=== PATIENT | female | born 1970 | race African-American/Black ===

== ENCOUNTER 2017-01-03 12:41 | Inpatient (IN) | payer OTHER ==
[2017-01-03 14:07] VITALS: BMI 21.9
--- NOTE | 2017-01-03 15:52 | HP ---
CIWA Score - CIWA Score Nausea/Vomitin Muscle Tremors: 2 Anxiety: 3 Agitation: 3 Paroxysmal Sweats: 3 Orientation: 0-Oriented Tacttile Disturbances: 2-Mild Itch/Numbness/Burn Auditory Disturbances: 0-None Visual Disturbances: 0-None Headache: 0-None Present CIWA-Ar Total Score: 15 Admission ROS BHS - HPI Chief Complaint: i need help to stop drinking Allergies/Adverse Reactions: Allergies Allergy/AdvReac Type Severity Reaction Status Date / Time No Known Allergies Allergy Verified 01/03/17 15:36 History of Present Illness: 46 y/o f pt aox3 in nad ambulating Exam Limitations: No Limitations - Ebola screening Have you traveled outside of the country in the last 21 days: No Have you had contact with anyone from an Ebola affected area: No Have you been sick,other than usual withdrawal symptoms: No Do you have a fever: No - Review of Systems Constitutional: Malaise, Unintentional Wgt. Loss EENT: reports: No Symptoms Reported Respiratory: reports: No Symptoms reported Cardiac: reports: No Symptoms Reported GI: reports: Nausea, Indigestion : reports: Frequency Musculoskeletal: reports: Back Pain Integumentary: reports: No Symptoms Reported Neuro: reports: No Symptoms reported Endocrine: reports: No Symptoms Reported Hematology: reports: No Symptoms Reported Psychiatric: reports: Anxious, Depressed Other Systems: Reviewed and Negative Patient History - Patient Medical History Hx Anemia: No Hx Asthma: No Hx Chronic Obstructive Pulmonary Disease (COPD): No Hx Cancer: No Hx Cardiac Disorders: No Hx Hypertension: No Hx Hypercholesterolemia: No Hx Pacemaker: No HX Cerebrovascular Accident: No Hx Seizures: No Hx Dementia: No Hx Diabetes: No Hx Gastrointestinal Disorders: Yes (Pt has GERD.) Hx Liver Disease: No Hx Genitourinary Disorders: No Hx Sexually Transmitted Disorders: Yes (Pt was tx for gonnorhea.) Hx Renal Disease (ESRD): No Hx Thyroid Disease: No Hx Human Immunodeficiency Virus (HIV): No (negative 2012) Hx Hepatitis C: No Hx Depression: Yes Hx Suicide Attempt: No Hx Bipolar Disorder: No Hx Schizophrenia: No - Patient Surgical History Past Surgical History: Yes Other Surgical History: L inguinal hernia repair tubal ligation. - PPD History Previous Implant?: Yes Documented Results: Negative w/o proof Implanted On Prior R Admission?: No PPD to be Administered?: Yes - Reproductive History Patient is a Female of Child Bearing Age (11 -55 yrs old): Yes Last Menstrual Period: 01/02/17 Patient : No - Smoking Cessation Smoking history: Current every day smoker Have you smoked in the past 12 months: Yes Aproximately how many cigarettes per day: 10 Cigars Per Day: 0 Hx Chewing Tobacco Use: No Initiated information on smoking cessation: Yes 'Breaking Loose' booklet given: 01/03/17 - Substance & Tx. History Hx Alcohol Use: Yes Hx Substance Use: Yes (mdma ) Substance Use Type: Alcohol Hx Substance Use Treatment: Yes - Substances Abused Alcohol Route: Oral Frequency: Daily Amount used: 2 40 OZ MALT LIQUOR AND UP Age of first use: 13 Date of Last Use: 01/03/17 Family Disease History - Family Disease History Family Disease History: Diabetes: Father (liver), Heart Disease: Father, CA: Father, Mother (breast age 57) Admission Physical Exam [facility] - Vital Signs Vital Signs: Vital Signs - 24 hr 01/03/17 14:05 Temperature 97.7 F Pulse Rate 93 H Respiratory 18 Rate Blood Pressure 119/86 46 y/o f pt aox3 in nad ambulating w/o tremor, + bruxism - Physical General Appearance: Yes: Thin, Anxious HEENTM: Yes: EOMI, Normal ENT Inspection, Normocephalic, Normal Voice, DARRON Respiratory: Yes: Chest Non-Tender, Lungs Clear, Normal Breath Sounds, No Respiratory Distress Neck: Yes: Supple, Trachea in good position Breast: Yes: Breast Exam Deferred Cardiology: Yes: Regular Rhythm, Regular Rate Abdominal: Yes: Non Tender, Flat, Soft, Increased Bowel Sounds Genitourinary: Yes: Frequency Back: Yes: Decreased Range of Motion Musculoskeletal: Yes: Back pain Extremities: Yes: Within Normal Limits Neurological: Yes: grinding room inspector II-XII NML intact, Fully Oriented Integumentary: Yes: Moist Lymphatic: Yes: Within Normal Limits - Diagnostic (1) Uncomplicated alcohol dependence Current Visit: Yes Status: Chronic (2) Chronic GERD Current Visit: Yes Status: Chronic (3) Nicotine dependence Current Visit: Yes Status: Chronic Qualifiers: Nicotine product type: cigarettes Substance use status: uncomplicated Qualified Code(s): F17.210 - Nicotine dependence, cigarettes, uncomplicated Cleared for Admission [facility] - Detox or Rehab [facility] Level of Care: Medically Managed Detox Regimen/Protocol: Librium BHS Breath Alcohol Content Breath Alcohol Content: 0.175 Urine Pregancy Test - Result Urine Test Results: Negative- NO Line Present Urine Drug Screen - Results Drug Screen Negative: No Urine Drug Screen Results: MDMA-Ecstasy
[2017-01-03] MEDS ORDERED: P-EPHED 60MG/TRIPROLIDI 2.5MG TABLET PO PRN (16:04)
[2017-01-03] MEDS ORDERED: MAGNESIUM HYDROX 2400MG/30ML ORAL SUSPENSION 30 ML CUP PO PRN (16:04)
[2017-01-03] MEDS ORDERED: ACETAMINOPHEN 325 MG TABLET (FP) PO PRN (16:04)
[2017-01-03] MEDS ORDERED: MAG HYDROX/AL HYDROX/SIMETH 30 ML UNIT-DOSE CUP PO PRN (16:04)
[2017-01-03] MEDS ORDERED: guaiFENesin/D-METHORPHAN HB 10 ML UNIT-DOSE CUPS PO PRN (16:04)
[2017-01-03] MEDS ORDERED: NICOTINE POLACRILEX 4 MG GUM BC PRN (16:04)
[2017-01-03] MEDS ORDERED: chlordiazePOXIDE HCL 25 MG CAPSULE PO PRN (16:04)
[2017-01-03] MEDS ORDERED: MENTHOL/PHENOL 1 EACH UD MM PRN (16:04)
[2017-01-03] MEDS ORDERED: LOPERAMIDE HCL 2 MG CAPSULE PO PRN (16:04)
[2017-01-03] MEDS ORDERED: hydrOXYzine PAMOATE 25 MG CAPSULE (FP) PO PRN (16:04)
[2017-01-03] MEDS ORDERED: MAGNESIUM CITRATE 300 ML BOTTLE PO PRN (16:04)
[2017-01-03] MEDS: chlordiazePOXIDE HCL 25 MG CAPSULE PO SCH ×2 (17:40→22:16)
[2017-01-03] MEDS: THIAMINE HCL 100 MG TABLET (FP) PO SCH (22:16)
[2017-01-03 23:00] LABS: URINE APPEARANCE CLEAR; URINE BILIRUBIN NEGATIVE (NEGATIVE); URINE COLOR STRAW; URINE GLUCOSE (UA) NEGATIVE (NEGATIVE); URINE KETONE NEGATIVE (NEGATIVE); URINE LEUK ESTERASE NEGATIVE (NEGATIVE); URINE NITRITE NEGATIVE (NEGATIVE); URINE PROTEIN NEGATIVE (NEGATIVE); URINE UROBILINOGEN NEGATIVE E.U./dl (0.2-1.0)
[2017-01-03 23:01] LABS: URINE BLOOD 3+ (NEGATIVE)
[2017-01-03 23:05] LABS: URINE MUCUS RARE; URINE RBC <1 /hpf (0-3); URINE WBC <1 /hpf (3-5)
[2017-01-04] MEDS: chlordiazePOXIDE HCL 25 MG CAPSULE PO SCH ×4 (05:50→22:11)
--- NOTE | 2017-01-04 09:55 | CONSULT ---
[facility] Psychiatric Consult - Data Date of interview: 01/04/17 Admission source: [facility] Identifying data: This is 46 years old female with no psychiatric hospitalization history intoxiocated with Alcohol and Nicotine Substance Abuse History: - Smoking Cessation. Smoking history: Current every day smoker. Have you smoked in the past 12 months: Yes. Aproximately how many cigarettes per day: 10. Cigars Per Day: 0. Hx Chewing Tobacco Use: No. Initiated information on smoking cessation: Yes. 'Breaking Loose' booklet given : 01/03/17. - Substance & Tx. History. Hx Alcohol Use: Yes. Hx Substance Use : Yes (mdma ). Substance Use Type: Alcohol. Hx Substance Use Treatment: Yes. - Substances Abused. Alcohol. Route: Oral. Frequency: Daily. Amount used : 2 40 OZ MALT LIQUOR AND UP. Age of first use: 13. Date of Last Use: 01/03/17 Medical History: GERD Psychiatric History: Patient reprots no past psychiatric history Physical/Sexual Abuse/Trauma History: Denies Additional Comment: Observation. Deto Unit Care Protocol Mental Status Exam - Mental Status Exam Alert and Oriented to: Person Cognitive Function: Fair Patient Appearance: Well Groomed Mood: Apprehensive Affect: Appropriate Patient Behavior: Cooperative Speech Pattern: Appropriate Voice Loudness: Normal Thought Process: Circumstantial, Goal Oriented Thought Disorder: Being Controlled Hallucinations: Denies Suicidal Ideation: Denies Homicidal Ideation: Denies Insight/Judgement: Fair Sleep: Difficulty falling asleep Appetite: Fair Muscle strength/Tone: Normal Gait/Station: Normal Additional Comments: Observation. Deto Unit Care Protocol Psychiatric Findings - Problem List ([place] 1, 2,3) (1) Nicotine dependence Current Visit: Yes Status: Chronic Qualifiers: Nicotine product type: cigarettes Substance use status: uncomplicated Qualified Code(s): F17.210 - Nicotine dependence, cigarettes, uncomplicated (2) Uncomplicated alcohol dependence Current Visit: Yes Status: Chronic (3) Alcohol dependence Current Visit: Yes Status: Acute (4) Drug-induced mood disorder Current Visit: Yes Status: Suspected - Initial Treatment Plan Initial Treatment Plan: Observation. Deto Unit Care Protocol
[2017-01-04] MEDS: PRENATAL VITAMINS W/ FOLIC ACID TABLET (FP) PO SCH (10:00)
[2017-01-04] MEDS: NICOTINE 21 MG/24 HOURS TOPICAL PATCH TD SCH (10:01)
[2017-01-04 10:19] LABS: MCH 33.2 pg (25.7-33.7); MCHC 33.2 g/dl (32.0-36.0); MEAN CELL VOLUME 99.8 fl (80-96); MEAN PLT VOLUME 8.5 fl (7.5-11.1); PLATELET COUNT 227 K/MM3 (134-434); RDW 12.6 % (11.6-15.6); WHITE BLOOD COUNT 5.7 K/mm3 (4.0-10.0)
[2017-01-04 10:39] LABS: ALK PHOS 85 U/L (45-117); ANION GAP 13 (8-16); BILIRUBIN,TOTAL 0.3 mg/dL (0.2-1.0); CALCIUM 8.8 mg/dL (8.5-10.1); CO2 24 mmol/L (21-32); CREATININE 0.7 mg/dL (0.55-1.02); GLUCOSE,RANDOM 67 mg/dL (74-106); SGOT/AST 113 U/L (15-37); SGPT/ALT 58 U/L (12-78); TOT PROT 7.5 g/dl (6.4-8.2)
--- NOTE | 2017-01-04 11:04 | PN ---
S CIWA - CIWA Score Nausea/Vomitin-No Nausea/No Vomiting Muscle Tremors: 3 Anxiety: 3 Agitation: 3 Paroxysmal Sweats: 3 Orientation: 0-Oriented Tacttile Disturbances: 0-None Auditory Disturbances: 0-None Visual Disturbances: 0-None Headache: 0-None Present CIWA-Ar Total Score: 12 BHS Progress Note (SOAP) Subjective: groggy sweats interrupted sleep tired Objective: 01/04/17 11:02 Vital Signs Temperature 97.2 F L 01/04/17 10:18 Pulse Rate 79 01/04/17 10:18 Respiratory Rate 18 01/04/17 10:18 Blood Pressure 142/88 01/04/17 10:18 O2 Sat by Pulse Oximetry (%) Laboratory Tests 01/03/17 01/04/17 01/04/17 21:00 06:00 06:00 WBC 5.7 RBC 4.68 Hgb 15.5 H Hct 46.7 H MCV 99.8 H MCHC 33.2 RDW 12.6 Plt Count 227 MPV 8.5 Sodium 141 Potassium 3.6 Chloride 104 Carbon Dioxide 24 Anion Gap 13 BUN 5 L Creatinine 0.7 Creat Clearance w eGFR > 60 Random Glucose 67 L Calcium 8.8 Total Bilirubin 0.3 AST 113 H ALT 58 Alkaline Phosphatase 85 Total Protein 7.5 Albumin 4.0 Urine Color Straw Urine Appearance Clear Urine pH 6.0 Ur Specific [place] 1.004 Urine Protein Negative Urine Glucose (UA) Negative Urine Ketones Negative Urine Blood 3+ H Urine Nitrite Negative Urine Bilirubin Negative Urine Urobilinogen Negative Ur Leukocyte Esterase Negative Urine RBC <1 Urine WBC <1 Ur Epithelial Cells Rare Urine Mucus Rare awake/alert ambulating no acute distress Assessment: 01/04/17 11:04 withdrawal sx Plan: increase fluids hold next librium dose then continue detox
[2017-01-04 11:26] LABS: HIV 1 & 2 AB NEGATIVE; HIV 1 AGp24 NEGATIVE
--- NOTE | 2017-01-04 12:28 | EKG ---
Test Reason : Blood Pressure : / mmHG Vent. Rate : 085 BPM Atrial Rate : 085 BPM P-R Int : 152 ms QRS Dur : 068 ms QT Int : 382 ms P-R-T Axes : 071 071 079 degrees QTc Int : 454 ms NORMAL SINUS RHYTHM POSSIBLE LEFT ATRIAL ENLARGEMENT SEPTAL INFARCT , AGE UNDETERMINED ABNORMAL ECG NO PREVIOUS ECGS AVAILABLE Confirmed by ASHISH DARLING MD ([id number]) on 01/04/2017 12:27:58 PM Referred By: Confirmed By:ASHISH DARLING MD
[2017-01-04] MEDS: THIAMINE HCL 100 MG TABLET (FP) PO SCH (22:12)
[2017-01-05] MEDS: diphenhydrAMINE HCL 50 MG CAPSULE PO PRN ×2 (00:15→22:36)
[2017-01-05] MEDS: chlordiazePOXIDE HCL 25 MG CAPSULE PO SCH ×2 (05:23→10:16)
[2017-01-05] MEDS: PRENATAL VITAMINS W/ FOLIC ACID TABLET (FP) PO SCH (10:16)
[2017-01-05] MEDS: NICOTINE 21 MG/24 HOURS TOPICAL PATCH TD SCH (10:16)
[2017-01-05] MEDS: IBUPROFEN 400 MG TABLET (FP) PO PRN (10:18)
--- NOTE | 2017-01-05 13:27 | PN ---
[facility] CIWA - CIWA Score Nausea/Vomitin Muscle Tremors: 2 Anxiety: 2 Agitation: 2 Paroxysmal Sweats: 2 Orientation: 0-Oriented Tacttile Disturbances: 2-Mild Itch/Numbness/Burn Auditory Disturbances: 0-None Visual Disturbances: 0-None Headache: 0-None Present CIWA-Ar Total Score: 12 S Progress Note (SOAP) Subjective: interrupted sleep, dizziness, lbp Objective: 01/05/17 13:25 Vital Signs Temperature 97.3 F L 01/05/17 09:36 Pulse Rate 90 01/05/17 09:36 Respiratory Rate 18 01/05/17 09:36 Blood Pressure 122/91 01/05/17 09:36 O2 Sat by Pulse Oximetry (%) Laboratory Tests 01/03/17 01/03/17 01/04/17 06:00 21:00 06:00 WBC 5.7 RBC 4.68 Hgb 15.5 H Hct 46.7 H MCV 99.8 H MCHC 33.2 RDW 12.6 Plt Count 227 MPV 8.5 Sodium Potassium Chloride Carbon Dioxide Anion Gap BUN Creatinine Creat Clearance w eGFR Random Glucose Calcium Total Bilirubin AST ALT Alkaline Phosphatase Total Protein Albumin Urine Color Straw Urine Appearance Clear Urine pH 6.0 Ur Specific [place] 1.004 Urine Protein Negative Urine Glucose (UA) Negative Urine Ketones Negative Urine Blood 3+ H Urine Nitrite Negative Urine Bilirubin Negative Urine Urobilinogen Negative Ur Leukocyte Esterase Negative Urine RBC <1 Urine WBC <1 Ur Epithelial Cells Rare Urine Mucus Rare RPR Titer HIV 1&2 Antibody Screen Negative HIV P24 Antigen Negative 01/04/17 01/04/17 06:00 06:00 WBC RBC Hgb Hct MCV MCHC RDW Plt Count MPV Sodium 141 Potassium 3.6 Chloride 104 Carbon Dioxide 24 Anion Gap 13 BUN 5 L Creatinine 0.7 Creat Clearance w eGFR > 60 Random Glucose 67 L Calcium 8.8 Total Bilirubin 0.3 AST 113 H ALT 58 Alkaline Phosphatase 85 Total Protein 7.5 Albumin 4.0 Urine Color Urine Appearance Urine pH Ur Specific [place] Urine Protein Urine Glucose (UA) Urine Ketones Urine Blood Urine Nitrite Urine Bilirubin Urine Urobilinogen Ur Leukocyte Esterase Urine RBC Urine WBC Ur Epithelial Cells Urine Mucus RPR Titer Nonreactive HIV 1&2 Antibody Screen HIV P24 Antigen pt aox3 in nad ambulating Assessment: 01/05/17 13:25 withdrawl sx's lbp elevated transaminases Plan: cont detox increase fluids lidocaine patch/d sgot/sgpt d/c tylenol
[2017-01-05] MEDS ORDERED: LIDOCAINE 5% TOPICAL PATCH TP ONE (13:30)
[2017-01-05] MEDS: chlordiazePOXIDE 5 MG CAPSULE PO SCH ×2 (17:43→22:36)
[2017-01-05] MEDS: THIAMINE HCL 100 MG TABLET (FP) PO SCH (22:36)
[2017-01-06] MEDS: chlordiazePOXIDE 5 MG CAPSULE PO SCH ×2 (05:59→10:23)
[2017-01-06 10:23] LABS: SGPT/ALT 40 U/L (12-78)
[2017-01-06] MEDS: PRENATAL VITAMINS W/ FOLIC ACID TABLET (FP) PO SCH (10:23)
[2017-01-06] MEDS: NICOTINE 21 MG/24 HOURS TOPICAL PATCH TD SCH (10:23)
[2017-01-06] MEDS: LIDOCAINE 5% TOPICAL PATCH TP SCH (10:23)
[2017-01-06 11:09] LABS: SGOT/AST 43 U/L (15-37)
--- NOTE | 2017-01-06 14:12 | PN ---
BHS Progress Note (SOAP) Subjective: Headache, Lower Back pain. Objective: PT. A & O X 2 (DISOREITNED ABOUT DAY / DATE). PT. OBSERVED AMBULATING ON UNIT. 01/06/17 14:07 Vital Signs Temperature 98.4 F 01/06/17 10:39 Pulse Rate 88 01/06/17 10:39 Respiratory Rate 20 01/06/17 10:39 Blood Pressure 122/85 01/06/17 10:39 O2 Sat by Pulse Oximetry (%) Laboratory Last Values WBC 5.7 K/mm3 (4.0-10.0) 01/04/17 06:00 RBC 4.68 M/mm3 (3.60-5.2) 01/04/17 06:00 Hgb 15.5 GM/dL (10.7-15.3) H 01/04/17 06:00 Hct 46.7 % (32.4-45.2) H 01/04/17 06:00 MCV 99.8 fl (80-96) H 01/04/17 06:00 MCHC 33.2 g/dl (32.0-36.0) 01/04/17 06:00 RDW 12.6 % (11.6-15.6) 01/04/17 06:00 Plt Count 227 K/MM3 (134-434) 01/04/17 06:00 MPV 8.5 fl (7.5-11.1) 01/04/17 06:00 Sodium 141 mmol/L (136-145) 01/04/17 06:00 Potassium 3.6 mmol/L (3.5-5.1) 01/04/17 06:00 Chloride 104 mmol/L (98-107) 01/04/17 06:00 Carbon Dioxide 24 mmol/L (21-32) 01/04/17 06:00 Anion Gap 13 (8-16) 01/04/17 06:00 BUN 5 mg/dL (7-18) L 01/04/17 06:00 Creatinine 0.7 mg/dL (0.55-1.02) 01/04/17 06:00 Creat Clearance w eGFR > 60 (>60) 01/04/17 06:00 Random Glucose 67 mg/dL (74-106) L 01/04/17 06:00 Calcium 8.8 mg/dL (8.5-10.1) 01/04/17 06:00 Total Bilirubin 0.3 mg/dL (0.2-1.0) 01/04/17 06:00 AST 43 U/L (15-37) H D 01/06/17 07:00 ALT 40 U/L (12-78) D 01/06/17 07:00 Alkaline Phosphatase 85 U/L (45-117) 01/04/17 06:00 Total Protein 7.5 g/dl (6.4-8.2) 01/04/17 06:00 Albumin 4.0 g/dl (3.4-5.0) 01/04/17 06:00 Urine Color Straw 01/03/17 21:00 Urine Appearance Clear 01/03/17 21:00 Urine pH 6.0 (5.0-8.0) 01/03/17 21:00 Ur Specific [place] 1.004 (1.001-1.035) 01/03/17 21:00 Urine Protein Negative (NEGATIVE) 01/03/17 21:00 Urine Glucose (UA) Negative (NEGATIVE) 01/03/17 21:00 Urine Ketones Negative (NEGATIVE) 01/03/17 21:00 Urine Blood 3+ (NEGATIVE) H 01/03/17 21:00 Urine Nitrite Negative (NEGATIVE) 01/03/17 21:00 Urine Bilirubin Negative (NEGATIVE) 01/03/17 21:00 Urine Urobilinogen Negative E.U./dl (0.2-1.0) 01/03/17 21:00 Ur Leukocyte Esterase Negative (NEGATIVE) 01/03/17 21:00 Urine RBC <1 /hpf (0-3) 01/03/17 21:00 Urine WBC <1 /hpf (3-5) 01/03/17 21:00 Ur Epithelial Cells Rare /hpf (FEW) 01/03/17 21:00 Urine Mucus Rare 01/03/17 21:00 RPR Titer Nonreactive (NONREACTIVE) 01/04/17 06:00 HIV 1&2 Antibody Screen Negative 01/03/17 06:00 HIV P24 Antigen Negative 01/03/17 06:00 LABS NOTED. ECG RESULT (AND ACCOMPANYING CARDIOLOGY REPORT) FROM 01/03/17 NOTED. REPEAT ECG SCHEDULED TO BE DONE ON 01/04/2017, HOWEVER, NOT DONE AT THAT TIME. REPEAT ECG DONE TODAY. RESULT NOTED. NO ACUTE CHANGE IN COMPARISON TO 01/03/2017 ECG NOTED. ACCOMPANYING ECG REPORT FROM CARDIOLOGY PENDING). PT. DENIES CHEST PAIN / TIGHTNESS. PT. DENIES ANY HISTORY OF CARDIOVASCULAR DISEASE. 01/06/17 14:12 01/06/17 14:13 Assessment: 01/06/17 14:12 WITHDRAWAL SYMPTOMS. 01/06/17 14:12 Plan: CONTINUE DETOX.
[2017-01-06] MEDS: chlordiazePOXIDE HCL 10 MG CAPSULE PO SCH ×2 (17:26→22:39)
[2017-01-06] MEDS: IBUPROFEN 400 MG TABLET (FP) PO PRN (17:28)
[2017-01-06] MEDS: THIAMINE HCL 100 MG TABLET (FP) PO SCH (22:39)
[2017-01-06] MEDS: diphenhydrAMINE HCL 50 MG CAPSULE PO PRN (22:40)
[2017-01-07] MEDS: chlordiazePOXIDE HCL 10 MG CAPSULE PO SCH ×2 (05:48→09:59)
--- NOTE | 2017-01-07 09:43 | PN ---
S Progress Note (SOAP) Subjective: ALERT,NO COMPLAINT Objective: 01/07/17 09:42 Vital Signs Temperature 96.6 F L 01/07/17 07:07 Pulse Rate 82 01/07/17 07:07 Respiratory Rate 18 01/07/17 07:07 Blood Pressure 116/86 01/07/17 07:07 O2 Sat by Pulse Oximetry (%) Assessment: 01/07/17 09:43 DETOX COMPLETED,NO WITHDRAWAL SYMPTOM Plan: DISCHARGE TODAY,FOLLOW UP WITH AFTER CARE PROGRAM ARRANGEMENT
--- NOTE | 2017-01-07 09:46 | DS ---
[facility] Detox Discharge Summary Admission Date: 01/03/17 Discharge Date: 01/07/17 - History Present History: Alcohol Dependence Additional Comments: FOLLOW UP WITH [facility] PROGRAM ARRANGEMENT AND PMD FOR MEDICAL PROBLEM Pertinent Past History: GERD NICOTINE DEPENDENCE - Physical Exam Results Vital Signs: Vital Signs Temperature 96.6 F L 01/07/17 07:07 Pulse Rate 82 01/07/17 07:07 Respiratory Rate 18 01/07/17 07:07 Blood Pressure 116/86 01/07/17 07:07 O2 Sat by Pulse Oximetry (%) Pertinent Admission Physical Exam Findings: WITHDRAWAL SYMPTOM - Treatment Hospital Course: Detox Protocol Followed, Detoxed Safely, Responded well, Discharged Condition Good, Rehab Referral Accepted Patient has Accepted a Rehab Referral to: [facility] - Medication Discharge Medications: Ambulatory Orders NK [No Known Home Medication] 01/03/17 - AMA Did Patient Leave Against Medical Advice: No
[2017-01-07] MEDS: PRENATAL VITAMINS W/ FOLIC ACID TABLET (FP) PO SCH (10:00)
[2017-01-07] MEDS: NICOTINE 21 MG/24 HOURS TOPICAL PATCH TD SCH (10:00)
[2017-01-07] MEDS: LIDOCAINE 5% TOPICAL PATCH TP SCH (10:02)
[2017-01-07 10:30] VITALS: BP 123/85; PULSE 109; TEMP 97.2
--- NOTE | 2017-01-07 13:26 | EKG ---
Test Reason : Blood Pressure : / mmHG Vent. Rate : 069 BPM Atrial Rate : 069 BPM P-R Int : 138 ms QRS Dur : 086 ms QT Int : 426 ms P-R-T Axes : 012 056 031 degrees QTc Int : 456 ms NORMAL SINUS RHYTHM WHEN COMPARED WITH ECG OF 03-JAN-2017 17:46, VENT. RATE HAS DECREASED Confirmed by HOMAR ZARAGOZA MD ([id number]) on 01/07/2017 1:25:49 PM Referred By: Confirmed By:HOMAR ZARAGOZA MD
== END 2017-01-07 10:20 | disposition home or self-care (01) | DRG 775 ==
LOC: YASAS 12:41 → Y6N 16:30
PROVIDERS: ADMIT Internal Medicine Addiction Medicine; ATTEND Internal Medicine Addiction Medicine
PROC: HZ2ZZZZ Detoxification Services for Substance Abuse Treatment (ICD-10-PCS; principal; 2017-01-07)
DX: F10.20 Alcohol dependence, uncomplicated (principal); F17.210 Nicotine dependence, cigarettes, uncomplicated; F19.24 Other psychoactive substance dependence with psychoactive substance-induced mood disorder; K21.9 Gastro-esophageal reflux disease without esophagitis
CPT/HCPCS: 36415; 80053; 81003; 81015; 84450; 84460; 85027; 86593; 87389; 93005; 93010